=== PATIENT | male | born 1975 | race Two or more races ===

== ENCOUNTER 2024-10-12 01:58 | Emergency (ER) | payer OTHER ==
[~2024-10-12] VITALS: Ht 182.9 cm; Wt 93.0 kg
[2024-10-12] MEDS ORDERED: KETOROLAC TROMETHAMINE 30 MG VIAL IV STA (02:56)
[2024-10-12] MEDS ORDERED: PROMETHAZINE HCL 50 MG/ML AMPUL IM STA (02:56)
[2024-10-12] MEDS ORDERED: TAMSULOSIN HCL 0.4 MG CAP PO STA (02:57)
[2024-10-12] MEDS ORDERED: SODIUM CHLORIDE 0.45 % 1,000 ML IV ONE (03:00)
[2024-10-12 03:56] LABS: HEMATOCRIT 41.8 % (39.0-48.0); HEMOGLOBIN 14.5 g/dL (13-16.00); MEAN CELL VOLUME 87.8 fL (80.0-100.00); MEAN CORPUSCULAR HEMOGLOBIN 30.4 pg (27.00-32.0); MEAN CORPUSCULAR HGB CONC 34.7 g/dl (32.0-36.0); PLATELET COUNT 166 K/uL (150-450); RED BLOOD COUNT 4.77 M/uL (4.00-6.00); RED CELL DISTRIBUTION WIDTH 14.2 % (11.5-14.5)
[2024-10-12 04:09] LABS: CALCIUM 9.1 mg/dL (8.5-10.1); CREATININE SERUM 1.39 mg/dL (0.70-1.30); GFR 54.54; POTASSIUM 3.85 mEq/L (3.5-5.1)
[2024-10-12 06:07] LABS: PH,URINE 5.5 (5.0-8.0); URINE APPEARANCE Clear; URINE BILIRRUBIN Negative (NEGATIVE); URINE BLOOD Moderate; URINE COLOR Yellow; URINE GLUCOSE Negative (NEGATIVE); URINE KETONE Negative (NEGATIVE); URINE LEUKOCYTE Negative; URINE NITRATE Negative; URINE PROTEIN Trace (NEGATIVE); URINE UROBILINOGEN 0.2 E.U./dl
[2024-10-12 06:11] LABS: URINE BACTERIA 15.9 uL (0.0-1933); URINE EPITHELIAL CELLS 4.5 uL (0.0-38.8); URINE RBC 129.9 uL (0.0-20.8); URINE WBC 3.9 uL (0.0-23.2)
[2024-10-12 06:12] LABS: URINE CAST 0.73 uL (0.0-1.40)
[2024-10-12] MEDS ORDERED: NAPHAZOLINE HCL/PHENIRAMINE 20 DR/ML DROPS OP STA (07:34)
[2024-10-12] MEDS ORDERED: GENTAMICIN SULFATE 0.15 MG/DR DROPS 5ML OP STA (07:34)
[2024-10-12] MEDS ORDERED: TETRACAINE HCL 20 DR/ML DROPS OP STA (07:36)
[2024-10-12] MEDS ORDERED: KETO10TA2 PO (07:50)
[2024-10-12] MEDS ORDERED: GENTAMICIN SULFA5 ML OP ×2 (07:51→07:52)
[2024-10-12] MEDS ORDERED: ALLERGY EYE DRO15 ML OP ×2 (07:52)
== END 2024-10-12 08:10 ==
LOC: ER 02:00
PROVIDERS: General Practice
DX: R10.9 Unspecified abdominal pain (principal); H57.89 Other specified disorders of eye and adnexa; Z88.2 Allergy status to sulfonamides